=== PATIENT | male | born 1975 | race Caucasian/White ===

== ENCOUNTER 2017-06-17 09:24 | Emergency (ER) | payer SELFPAY ==
[2017-06-17] MEDS ORDERED: Ibuprofen TAB* 400 MG PO ONE (09:59)
--- NOTE | 2017-06-17 10:13 | UC ---
Yulisa Pedraza Edward, scribed for Ashley West MD on 06/17/17 at 0930 . Lower Extremity/Ankle HPI - HPI Summary HPI Summary: 42 y/o male presents to [facility] c/o L calf pain s/p occupational injury at 06/15/17 at 10:00. The patient was running on an incline when he felt a "twang like a guitar string" in his L leg. He immediately felt severe pain in his L leg following the injury and rates the pain 8-9/10 in severity now. Since the injury he has also developed a stiffness in his L calf that radiates up his leg. He states the pain is worse on the sides of the calf. The calf pain is aggravated by putting pressure on the L leg and by sitting down. Pain is increasing today, along with increasing leg swelling. Associated sx: L lower leg edema. He denies pain in the L knee and ankle and problems with breathing, bowel movements and and urination. 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 He states that he worked the past two days through the injury. He has taken Alleve for pain. PMHx R rotator cuff tear. No relevant FHx. Smoker. - History of Current Complaint Stated Complaint: LEG INJURY Hx Obtained From: Patient Onset/Duration: Sudden Onset, Lasting Days - 06/15/17 @ 10:00, Still Present Severity Initially: Severe Severity Currently: Severe Pain Intensity: 9 Pain Scale Used: 0-10 Numeric Aggravating Factor(s): Other - Putting pressure on L leg, sitting down Able to Bear Weight: Yes Related History: Occupational Injury - Risk Factors Gout Risk Factors: Male DVT Risk Factors: Smoking Septic Arthritis Risk Factor: Negative - Allergies/Home Medications Allergies/Adverse Reactions: Allergies Allergy/AdvReac Type Severity Reaction Status Date / Time No Known Allergies Allergy Verified 06/17/17 09:30 Home Medications: Home Medications NK [No Home Medications Reported] 06/17/17 [History Confirmed 06/17/17] PMH/Surg Hx/FS Hx/Imm Hx - Additional Past Medical History Additional PMH: Positive: R rotator cuff tear Previously Healthy: Yes Respiratory History: Other - nicotine dependent Other Respiratory History: smoker, no chronic cough - Surgical History Surgical History: None - Family History Known Family History: Positive: Other - No family history of thrombophlebitis Negative: Cardiac Disease, Hypertension, Diabetes - Social History Occupation: Employed Full-time Lives: With Family - Girlfriend Smoking Status (MU): Current Every Day Smoker Type: Cigarettes Have You Smoked in the Last Year: Yes Review of Systems Constitutional: Negative Skin: Negative Eyes: Negative ENT: Negative Respiratory: Other - smoker, without chronic cough. Cardiovascular: Negative Gastrointestinal: Negative - No problems with bowel movements Genitourinary: Negative - No problems with urination Motor: Negative Neurovascular: Negative Musculoskeletal: Calf Tenderness, Edema - L lower leg, Myalgia - Pain and stiffness in the L lower leg radiating up the leg, Other: - No pain in L knee or ankle Neurological: Negative Psychological: Negative All Other Systems Reviewed And Are Negative: Yes Physical Exam Triage Information Reviewed: Yes Appearance: Well-Appearing, Pain Distress - moderate pain at rest, increases with movement. Vital Signs: Initial Vital Signs Temp 98.8 F 06/17/17 09:30 Pulse 76 06/17/17 09:30 Resp 16 06/17/17 09:30 BP 112/75 06/17/17 09:30 Pulse Ox 100 06/17/17 09:30 Vital Signs Reviewed: Yes ENT Exam: Normal Dental Exam: Normal Respiratory: Positive: Lungs clear, Normal breath sounds Cardiovascular: Positive: RRR, No Murmur Abdomen Description: Positive: Nontender, No Organomegaly, Soft Musculoskeletal: Positive: Strength Intact, ROM Limited @ - pain with flexion of left knee. Positive Sanya's with left ankle flexion. Negative Weller's test: Achilles appears intact, without defect. Left ankle and left calf measure 2 cm greater on the left side than right. + 1 pitting edema on the left Neurological Exam: Normal Neurological: Positive: Alert, Muscle Tone Normal Psychological Exam: Normal Skin Exam: Other - patchy ecchymosis upper outer left calf just distal to the knee. Lower Extremity Course/Dx - Course Course Of Treatment: transferred to ER to rule out DVT. analgesics. Advised initial injury likely a tear of th gastroc. - Differential Dx/Diagnosis Differential Diagnosis/HQI/PQRI: Compartment Syndrome, DVT, Tendonitis, Other - possible muscle tear Provider Diagnoses: left leg swelling post injury; muscle tear; rule out DVT - Physician Notifications Discussed Patient Care With: Chela charge nurse in ER Time Discussed With Above Provider: 10:00 Discharge - Discharge Plan Condition: Stable Disposition: TRANS HIGHER LVL OF CARE FAC The documentation as recorded by the Yulisa javier Edward accurately reflects the service I personally performed and the decisions made by me, Ashley West MD.
== END 2017-06-17 10:13 | disposition left against medical advice (07) ==
LOC: UCEAST 09:24
DX: M79.89 Other specified soft tissue disorders (principal); S86.912A Strain of unspecified muscle(s) and tendon(s) at lower leg level, left leg, initial encounter; X50.0XXA Overexertion from strenuous movement or load, initial encounter; Y93.02 Activity, running; Y92.69 Other specified industrial and construction area as the place of occurrence of the external cause; Y99.0 Civilian activity done for income or pay; F17.200 Nicotine dependence, unspecified, uncomplicated
CPT/HCPCS: 99202; A9270-GY; G0463

== ENCOUNTER 2017-06-17 11:14 | Emergency (ER) | payer SELFPAY ==
[2017-06-17] MEDS ORDERED: Cyclobenzaprine TAB* 10 MG PO ONE (12:16)
--- NOTE | 2017-06-17 12:49 | RAD ---
INDICATION: Left lower extremity pain and swelling. COMPARISON: There are no prior studies available for comparison. TECHNIQUE: Multiple real-time, color flow and Doppler tracings of the left lower extremity were obtained. FINDINGS: The common femoral, femoral, profunda femoral and popliteal veins all demonstrate normal compressibility, augmentation with compression and phasic response with respiration. The posterior tibial and peroneal veins demonstrate normal compressibility and augmentation with compression. IMPRESSION: NO EVIDENCE FOR DEEP VENOUS THROMBOSIS.
--- NOTE | 2017-06-17 14:45 | ED ---
Lower Extremity - HPI Summary HPI Summary: Patient presents with left lower extremity pain, redness and swelling x 3 days after injury at work. He notes to slipping on uneven ground and feeling a severe "pull" in the left calf. He was able to ambulate but with pain. He states the redness and pain have been worsening and now feels the area is slightly swollen. he was seen at who sent him to the ED for r/o DVT. Patient is a smoker. Denies recent travel, or known malignancy. Denies other pain or concerns. He has been using cold compresses and ibuprofen for pain relief but still notes pain level at 8/10 and now the pain is extending from the calf into the left hamstring. - History of Current Complaint Chief Complaint: EDExtremityLower Stated Complaint: LEFT LEG INJURY COMMING FROM Time Seen by Provider: 06/17/17 11:23 Hx Obtained From: Patient Mechanism Of Injury: Twisted Onset of Pain: Immediate Onset/Duration: Days Severity Initially: Moderate Severity Currently: Moderate Pain Intensity: 9 Pain Scale Used: 0-10 Numeric Timing: Constant Location: Is Discrete @ - left calf Character Of Pain: Aching Aggravating Factor(s): Standing, Ambulation Alleviating Factor(s): Rest Able to Bear Weight: No - Risk Factors Gout Risk Factors: Age Over 40, Male DVT Risk Factors: Recent Trauma Septic Arthritis Risk Factor: Negative - Allergies/Home Medications Allergies/Adverse Reactions: Allergies Allergy/AdvReac Type Severity Reaction Status Date / Time No Known Allergies Allergy Verified 06/17/17 09:30 PMH/Surg Hx/FS Hx/Imm Hx Previously Healthy: Yes - Immunization History Hx Pertussis Vaccination: No Immunizations Up to Date: Unable to Obtain/Confirm Infectious Disease History: No Infectious Disease History: Denies: Hx Clostridium Difficile, Hx Hepatitis, Hx Human Immunodeficiency Virus (HIV), Hx of Known/Suspected MRSA, Hx Shingles, Hx Tuberculosis, Hx Known/ Suspected VRE, Hx Known/Suspected VRSA, History Other Infectious Disease, Traveled Outside the [place] in Last 30 Days - Family History Known Family History: Positive: Other - No family history of thrombophlebitis Negative: Cardiac Disease, Hypertension, Diabetes - Social History Occupation: Employed Full-time Lives: With Family Alcohol Use: Occasionally Hx Substance Use: No Substance Use Type: Reports: None Hx Tobacco Use: Yes Smoking Status (MU): Current Every Day Smoker Type: Cigarettes Have You Smoked in the Last Year: Yes Review of Systems Constitutional: Negative Eyes: Negative Cardiovascular: Negative Respiratory: Negative Positive: no symptoms reported, see HPI Positive: Arthralgia, Myalgia Positive: Other - erythema and swelling of lower extremity Neurological: Negative All Other Systems Reviewed And Are Negative: Yes Physical Exam Triage Information Reviewed: Yes Vital Signs On Initial Exam: Initial Vitals Temp Pulse Resp BP Pulse Ox 98.4 F 81 16 112/75 98 06/17/17 11:17 06/17/17 11:17 06/17/17 11:17 06/17/17 11:17 06/17/17 11:17 Vital Signs Reviewed: Yes Appearance: Positive: Well-Appearing, Well-Nourished Skin: Positive: Warm, Skin Color Reflects Adequate Perfusion, Other - slight erythema and warmth over left lower extremity Head/Face: Positive: Normal Head/Face Inspection Eyes: Positive: Normal, TAY, Conjunctiva Clear Neck: Positive: Supple, Nontender, No Lymphadenopathy Respiratory/Lung Sounds: Positive: Clear to Auscultation, Breath Sounds Present Cardiovascular: Positive: Normal, RRR, Pulses are Symmetrical in both Upper and Lower Extremities Musculoskeletal: Positive: Pain @ - left lower extremity radiating to the hamstring Neurological: Positive: Sensory/Motor Intact, Alert, Oriented to Person Place, Time, Speech Normal Psychiatric: Positive: Normal AVPU Assessment: Alert Diagnostics - Vital Signs Vital Signs Temp Pulse Resp BP Pulse Ox 06/17/17 13:46 98.6 F 71 16 132/67 06/17/17 11:23 98.4 F 81 16 112/75 100 06/17/17 11:17 98.4 F 81 16 112/75 98 - Laboratory Lab Statement: Any lab studies that have been ordered have been reviewed, and results considered in the medical decision making process. Lower Extremity Course/Dx - Course Course Of Treatment: left lower extremity radiating to the hamstring after a twisting injury and feeling a "pull" in the left calf. Sent here to r/o DVT from [facility]. [place] negative for DVT. Encouraged cold and heat to the area, note given for work, flexeril rx and ibuprofen encouraged. Educated patient on possible cellulitis and encouraged for worsening redness around the area, more warmth, red streaking moving away from the area, or if he develops a fever or have any other worsening symptoms, he was to return to the ED immediately. Patient made aware of plan and is OK with discharge. Patient will follow up with PCP and return if symptoms become worse. Return precautions given, medications and side effects reviewed. - Diagnoses Differential Diagnosis/HQI/PQRI: Positive: Contusion, DVT, Sprain, Strain, Tendonitis Provider Diagnoses: Muscle strain of left lower extremity Discharge - Discharge Plan Condition: Stable Disposition: HOME Prescriptions: Cyclobenzaprine TAB* [Flexeril TAB*] 10 mg PO BID PRN #10 tab PRN Reason: Pain Patient Education Materials: Muscle Strain (ED) Forms: *Work Release Referrals: Non Staff,Doctor [Primary Care Provider] - Additional Instructions: Follow up with PCP within 1 week Cold and hot compresses will alleviate the symptoms Ibuprofen 600mg three times daily Flexeril twice daily for [address] machinery with this medication Rest as much as possible Note or work has been given to you
== END 2017-06-17 13:46 | disposition home or self-care (01) ==
LOC: ED 11:14
DX: S86.912A Strain of unspecified muscle(s) and tendon(s) at lower leg level, left leg, initial encounter (principal); W01.0XXA Fall on same level from slipping, tripping and stumbling without subsequent striking against object, initial encounter; Y93.89 Activity, other specified; Y92.9 Unspecified place or not applicable; F17.210 Nicotine dependence, cigarettes, uncomplicated
CPT/HCPCS: 99282; A9270-GY